=== PATIENT | female | born 1985 | race Caucasian/White ===

== ENCOUNTER 2021-02-12 16:34 | Emergency (ER) | payer MEDICARE, MEDICAID ==
[~2021-02-12] VITALS: Ht 180.3 cm; Wt 100.0 kg
[2021-02-12 18:04] LABS: BASOPHILS % (AUTO) 0.2 % (0-1); EOSINOPHILS # (AUTO) 0.2 X10'3 (0-0.9); EOSINOPHILS % (AUTO) 2.5 % (0-6); HEMATOCRIT 43.2 % (35.0-45.0); HEMOGLOBIN 14.7 g/dl (12.0-16.0); LYMPHOCYTES # (AUTO) 1.9 X10'3 (1.1-4.8); LYMPHOCYTES % (AUTO) 18.9 % (21-51); MEAN CORPUSCULAR HEMOGLOBIN 28.8 PG (27.0-31.0); MEAN CORPUSCULAR VOLUME 84.7 FL (78-98); MEAN PLATELET VOLUME 8.8 FL (7.4-10.4); MONOCYTES # (AUTO) 0.8 X10'3 (0-0.9); MONOCYTES % (AUTO) 7.8 % (2-12); NEUTROPHILS # (AUTO) 7.1 X10'3 (1.8-7.7); NEUTROPHILS % (AUTO) 70.6 % (42-75); PLATELET COUNT 266 X10'3 (140-440); RED CELL DISTRIBUTION WIDTH 14.1 % (11.5-14.5); WHITE BLOOD COUNT 10.1 X10'3 (4.5-11.0)
[2021-02-12 18:06] LABS: COLOR,URINE YELLOW (Yellow); GLUCOSE, URINE NEGATIVE (Neg); KETONES,URINE NEGATIVE (Neg); LEUKOCYTE ESTERASE ,URINE NEGATIVE (Neg); NITRITES, URINE NEGATIVE (Neg); OCCULT BLOOD,URINE NEGATIVE (Neg); PH,URINE 5.5 (4.8-8.0); PROTEIN,URINE NEGATIVE (Neg); UROBILINOGEN,URINE 0.2 E.U/dL (0.2-1.0)
[2021-02-12 18:07] LABS: UA COLLECTION TYPE CLN CATCH MIDSTREAM
[2021-02-12 18:15] LABS: CLARITY,URINE SLIGHTLY CLOUDY (Clear)
[2021-02-12 18:16] LABS: BACTERIA,URINE FEW /HPF (Neg); RBC,URINE NONE SEEN /HPF (0-2); SQUAMOUS EPITHELIAL CELL,UR MODERATE /LPF (FEW); WBC,URINE 0-4 /HPF (0-4)
[2021-02-12 18:17] LABS: ALANINE AMINOTRANSFERASE 55 U/L (12-78); ALBUMIN 4.1 G/DL (3.4-5.0); ALBUMIN/GLOBULIN RATIO 1.2 (1.1-1.5); ALKALINE PHOSPHATASE 76 IU/L (46-116); AMYLASE 36 U/L (25-115); ANION GAP 8 (8-16); ASPARTATE AMINO TRANSFERASE 28 U/L (10-37); BILIRUBIN,TOTAL 0.4 MG/DL (0.1-1.0); BLOOD UREA NITROGEN 20 MG/DL (7-18); BUN/CREATININE RATIO 21.3 (6.6-38.0); CALCIUM 8.9 MG/DL (8.5-10.1); CHLORIDE 104 MMOL/L (99-107); CREATININE 0.94 MG/DL (0.40-0.90); GLUCOSE 85 MG/DL (70-104); LIPASE 151 U/L (73-393); POTASSIUM 3.8 MMOL/L (3.5-5.1); SODIUM 142 MMOL/L (135-145); TOTAL CARBON DIOXIDE 30.4 MMOL/L (24-32); TOTAL PROTEIN 7.4 G/DL (6.4-8.2); eGFR 68 ML/MIN
[2021-02-12] MEDS ORDERED: ketorolac trometh inj. 60 MG/2 ML VIAL IM ONE (21:35)
[2021-02-12] MEDS ORDERED: HYDR-3965 PO (21:44)
[2021-02-12 21:50] VITALS: BP 134/98
== END 2021-02-12 21:55 | disposition home or self-care (01) ==
LOC: ER 16:34
DX: R07.81 Pleurodynia (principal); J44.9 Chronic obstructive pulmonary disease, unspecified; Z79.1 Long term (current) use of non-steroidal anti-inflammatories (NSAID); Z88.8 Allergy status to other drugs, medicaments and biological substances
CPT/HCPCS: 36415; 71045; 80053; 81001; 82150; 83690; 85025; 96372; 99284; J1885

== ENCOUNTER → 2021-02-25 | Emergency (ER) | payer MEDICARE, MEDICAID ==
[~2021-02-25] VITALS: Ht 180.3 cm; Wt 122.3 kg
[~2021-02-25] MED LIST: HYDR-3965 PO; HYDR-3972 PO
[2021-02-25 13:11] VITALS: BP 168/108
== END | disposition home or self-care (01) ==
LOC: ER 11:26
DX: M72.2 Plantar fascial fibromatosis (principal); J44.9 Chronic obstructive pulmonary disease, unspecified; Z88.1 Allergy status to other antibiotic agents; Z88.8 Allergy status to other drugs, medicaments and biological substances; Z79.899 Other long term (current) drug therapy
CPT/HCPCS: 73630; 99283

== ENCOUNTER 2021-03-04 09:57 | Emergency (ER) | payer MEDICARE, MEDICAID ==
[~2021-03-04] VITALS: Ht 180.3 cm; Wt 122.7 kg
[2021-03-04 10:00] VITALS: BP 167/82
== END 2021-03-04 12:58 | disposition home or self-care (01) ==
LOC: ER 09:59
DX: R07.89 Other chest pain (principal); M72.2 Plantar fascial fibromatosis; R05 Cough; J44.9 Chronic obstructive pulmonary disease, unspecified; Z88.1 Allergy status to other antibiotic agents; Z88.8 Allergy status to other drugs, medicaments and biological substances; Z79.899 Other long term (current) drug therapy
CPT/HCPCS: 99281

== ENCOUNTER 2024-05-04 18:27 | Emergency (ER) | payer MEDICARE, MEDICAID ==
[~2024-05-04] VITALS: Ht 180.3 cm; Wt 95.6 kg
[~2024-05-04 18:27] MED LIST changes: +CLIN-97 PO; -HYDR-3965 PO; -HYDR-3972 PO
[2024-05-04 18:35] VITALS: TEMP 98
[2024-05-04] MEDS ORDERED: ALBU8HFA INH (19:53)
[2024-05-04] MEDS ORDERED: ADV50250 INH (19:53)
[2024-05-04 20:01] VITALS: BP 152/99; PULSE 85; RESP 16; O2SAT 90
== END 2024-05-04 20:03 | disposition home or self-care (01) ==
LOC: ER 18:27
DX: J06.9 Acute upper respiratory infection, unspecified (principal); Z20.822 Contact with and (suspected) exposure to COVID-19; J44.9 Chronic obstructive pulmonary disease, unspecified; Z88.1 Allergy status to other antibiotic agents; Z88.5 Allergy status to narcotic agent; Z88.8 Allergy status to other drugs, medicaments and biological substances; Z79.2 Long term (current) use of antibiotics
CPT/HCPCS: 36415; 71045; 87811; 99284

== ENCOUNTER 2024-07-08 09:46 | Emergency (ER) | payer MEDICARE, MEDICAID ==
[~2024-07-08] VITALS: Ht 180.3 cm; Wt 110.0 kg
[2024-07-08 09:50] VITALS: BP 138/83; PULSE 91; O2SAT 97
[2024-07-08] MEDS ORDERED: AZIT500T18 PO (10:08)
[2024-07-08] MEDS ORDERED: CIPR10DR RIGHT EAR (10:10)
[2024-07-08 10:33] VITALS: RESP 18; TEMP 98
== END 2024-07-08 10:30 | disposition home or self-care (01) ==
LOC: ER 09:47
DX: H60.8X1 Other otitis externa, right ear (principal); H66.91 Otitis media, unspecified, right ear; Z79.899 Other long term (current) drug therapy; Z88.1 Allergy status to other antibiotic agents; Z88.5 Allergy status to narcotic agent; J44.9 Chronic obstructive pulmonary disease, unspecified
CPT/HCPCS: 99283

== ENCOUNTER 2024-09-13 09:55 | Emergency (ER) | payer MEDICARE, MEDICAID ==
[~2024-09-13] VITALS: Ht 180.3 cm; Wt 112.4 kg
[2024-09-13] MEDS ORDERED: AZIT250T83 PO (11:05)
[2024-09-13] MEDS ORDERED: ACET15SO14 LEFT EAR (11:06)
[2024-09-13] MEDS: ketorolac trometh 15mg/ml vial 15 MG/ML ML IM ONE (11:15)
[2024-09-13 11:19] VITALS: BP 143/75; PULSE 94; RESP 16; TEMP 98.5; O2SAT 100
== END 2024-09-13 11:20 | disposition home or self-care (01) ==
LOC: ER 09:56
DX: H66.91 Otitis media, unspecified, right ear (principal); H60.91 Unspecified otitis externa, right ear; J44.9 Chronic obstructive pulmonary disease, unspecified; Z88.0 Allergy status to penicillin; Z88.5 Allergy status to narcotic agent; Z88.8 Allergy status to other drugs, medicaments and biological substances
CPT/HCPCS: 96372; 99283; J1885